=== PATIENT | female | born 1935 | race Caucasian/White ===

== ENCOUNTER 2017-04-30 21:34 | Emergency (ER) | payer MEDICAID, MEDICARE ==
[~2017-04-30] VITALS: Ht 162.6 cm; Wt 81.6 kg
[~2017-04-30 21:34] MED LIST: AMIT100T2 PO; CALC-1119 PO; CARB200T8 PO; CLON1TAB4 PO; CLOP75TA15 PO; FAMO1TAB36 PO; PENT400T2 PO; PHEN-704 PO; PREG75CA PO; ROPI2TAB5 PO; SULF1TAB48 PO; VITA1TAB34 PO
[2017-04-30] MEDS: LIDOCAINE HCL 1% 20 ML VIAL IJ ONE (21:54)
--- NOTE | 2017-04-30 22:00 | NUR ---
Pt biba for large laceration to RLE. Pt seen by MD. Wound irrigated, awaiting laceration repair. Pt resting in position of comfort for self. Resp even and unlabored. No obvious signs of distress at this time. Family at bedside.
--- NOTE | 2017-04-30 23:20 | NUR ---
Pt resting in position of comfort for self. Awaiting laceration repair.
--- NOTE | 2017-05-01 00:30 | NUR ---
Dr. Sr to bedside for laceration repair
[2017-05-01] MEDS: AMOXICILLIN-CLAVUL 875-125MG TABLET PO ONE (01:31)
[2017-05-01 01:37] VITALS: BP 137/80
--- NOTE | 2017-05-01 01:39 | NUR ---
Patient discharged to home in stable conditon. Written and verbal after care instructions given. Patient verbalizes understanding of instructions. Ambulated from ER with stable gait using front wheel walker. Accompanied by private caregiver. All belongings with patient. Patient educated to return for wound check in 2 days and to take antibiotic as ordered for full course. Patient will be driven home by caregiver in private vehicle.
[2017-05-01] MEDS ORDERED: AMOXICILLIN-CLAVUL 875-125MG TABLET ONE (01:41)
[2017-05-01] MEDS ORDERED: CARBIDOPA/LEVODOPA 25-100MG TABLET PO STA (04:39)
== END 2017-05-01 01:38 | disposition home or self-care (01) ==
LOC: ER 21:37
DX: S81.811A Laceration without foreign body, right lower leg, initial encounter (principal); I10 Essential (primary) hypertension; F32.9 Major depressive disorder, single episode, unspecified; D64.9 Anemia, unspecified; Z87.01 Personal history of pneumonia (recurrent); W18.30XA Fall on same level, unspecified, initial encounter; Y93.89 Activity, other specified; Y99.8 Other external cause status; Y92.89 Other specified places as the place of occurrence of the external cause
CPT/HCPCS: A4217; A4663; J3490

== ENCOUNTER 2017-05-05 17:41 | Inpatient (IN) | payer MEDICAID, MEDICARE ==
[~2017-05-05] VITALS: Ht 149.9 cm; Wt 65.8 kg
--- NOTE | 2017-05-05 18:38 | NUR ---
DR ZHAO AT THE BEDSIDE FOR EVAL AND EXAM.
[2017-05-05] MEDS ORDERED: VANCOMYCIN IV 1,000 MG in IV DEXTROSE 5% 250 ML IV ONE (19:00)
[2017-05-05] MEDS ORDERED: VANCOMYCIN IV 200 ML ONE (19:19)
[2017-05-05 19:29] LABS: BASOPHILS % (AUTO) 0.7 % (0.0-2.0); EOSINOPHILS # (AUTO) 0.1 K/uL (0.0-0.7); EOSINOPHILS % (AUTO) 1.7 % (0.0-7.0); HEMATOCRIT 28.9 % (37-47); HEMOGLOBIN 9.6 G/DL (12.0-16.0); LYMPHOCYTES # (AUTO) 1.1 K/UL (0.8-4.8); MEAN CORPUSCULAR HEMOGLOBIN 29.6 UUG (27.0-31.0); MEAN CORPUSCULAR HGB CONC 33 g/dL (32.0-37.0); MEAN CORPUSCULAR VOLUME 89.1 FL (81.0-99.0); MONOCYTES # (AUTO) 0.6 K/UL (0.1-1.30); MONOCYTES % (AUTO) 9.4 % (0.0-11.0); NEUTROPHILS # (AUTO) 4.4 K/UL (1.8-8.9); NEUTROPHILS % (AUTO) 70.2 % (38.5-71.5); PLATELET COUNT (AUTO) 279 K/UL (150-450); RED BLOOD CELL COUNT(AUTO) 3.25 MIL/UL (4.2-5.4); WHITE BLOOD COUNT (AUTO) 6.2 K/UL (4.0-11.2)
[2017-05-05 19:37] LABS: ALANINE AMINOTRANSFERASE 21 U/L (14-59); ALKALINE PHOSPHATASE 131 U/L (50-136); ASPARTATE AMINOTRANSFERASE 25 U/L (15-37); BILIRUBIN,DIRECT 0.1 mg/dL (0.0-0.2); BILIRUBIN,TOTAL 0.2 mg/dL (0.2-1.0); CARBON DIOXIDE 25 mmol/L (21-32); CHLORIDE 94 mmol/L (98-107); CREATININE 0.7 mg/dL (0.6-1.3); GLUCOSE 115 mg/dL (74-106); POTASSIUM 4.4 mmol/L (3.5-5.1); TOTAL PROTEIN, SERUM 7.3 g/dL (6.4-8.2); UREA NITROGEN, BLOOD 15 mg/dL (7-18)
--- NOTE | 2017-05-05 19:55 | NUR ---
Radiology at bedside for US.
[2017-05-05 20:00] VITALS: BP 111/65
--- NOTE | 2017-05-05 20:04 | NUR ---
Radiology completed US, preliminary results to ERMD.
--- NOTE | 2017-05-05 20:17 | NUR ---
Received report from KYUNG [facility].
--- NOTE | 2017-05-05 20:31 | NUR ---
Pt. admitted to M/S, under care of Dr. Mathis Belongs List completed
--- NOTE | 2017-05-05 20:50 | NUR ---
Received pt from ER via mallika sullivan/ KYUNG. Pt completed Vancomycin from ER however pt's left antecubital peripheral line is infiltarted. Photo taken picture and applied warm compress.
--- NOTE | 2017-05-05 21:15 | NUR ---
VS taken and stable. Assessment done:Pt is AOX3 ambulates with personal walker. ambulates to bathroom with standby assist. Lung sound clear,heart sounds S1 S2, abdominal sounds hypoactive, had BM today,pulses palpable,temperature WNL. Skin is intact except for rt leg which had laceration repair from ER, suture intact,skin is purplish black in description, reddened and swollen, warm to touch.Observed some bruises bilateral hands and infiltrated left antecubital,photo taken and secured in the chart. Pt denies any pain at the lacerated area (rt leg.),complains more at left knee, scars notice bilateral knee. Pt also c/o left shoulder intermittently, mentioned that she goes to MD for steroids shots.
[2017-05-05] MEDS ORDERED: ONDANSETRON 4 MG/2 ML VIAL IV PRN (22:00)
[2017-05-05] MEDS ORDERED: MAGNESIUM HYDROXIDE 30 ML LIQUID UDC PO PRN (22:00)
[2017-05-05] MEDS ORDERED: MORPHINE SULFATE 2 MG/1 ML DISP.SYRIN IV PRN (22:00)
[2017-05-05] MEDS ORDERED: MORPHINE SULFATE 2 MG/1 ML DISP.SYRIN ONE (22:56)
[2017-05-05] MEDS ORDERED: CARBAMAZEPINE 200 MG TABLET ONE (23:24)
[2017-05-05] MEDS ORDERED: PIPERACILLIN/TAZOBACTAM/D5W 50 ML IV ONE (23:24)
[2017-05-05] MEDS: CARBAMAZEPINE 200 MG TABLET PO SCH (23:29)
[2017-05-05] MEDS: PIPERACILLIN/TAZOBACTAM/D5W 3.375 G in PREMIXED 1 EACH IV SCH (23:29)
--- NOTE | 2017-05-06 | NUR ---
Cleansed the rt leg laceration wound w/ NS, patted dry, covered w/ adaptic dressing and secured w/ Kirlex dressing, elevated bilaterallegs w/ pillows. Heels and other pressure areas are free from ulcers. Continue monitor.
[2017-05-06] MEDS ORDERED: PIPERACILLIN/TAZOBACTAM/D5W 50 ML IV ONE (00:05)
--- NOTE | 2017-05-06 01:00 | NUR ---
Pt requested fro medicine for knee jerks,she said she take Klonopin, made aware and given pt 2mg Klonopin.Pt was comfortable sleeping after.
[2017-05-06] MEDS ORDERED: CLONAZEPAM 1 MG TABLET ONE (01:02)
[2017-05-06] MEDS: CLONAZEPAM 1 MG TABLET PO SCH ×2 (01:33→21:18)
--- NOTE | 2017-05-06 04:00 | NUR ---
Pt asleep, VS stable and continue monitor. Breathing evenly and normally.
[2017-05-06 05:52] VITALS: BP 115/62
--- NOTE | 2017-05-06 06:52 | NUR ---
Pt remained asleep. Shift Change.Report to Day shift RN
[2017-05-06] MEDS: PIPERACILLIN/TAZOBACTAM/D5W 3.375 G in PREMIXED 1 EACH IV SCH ×3 (07:00→21:18)
[2017-05-06] MEDS: PANTOPRAZOLE SODIUM 40 MG TABLET.DR PO SCH (07:00)
[2017-05-06] MEDS ORDERED: PANTOPRAZOLE SODIUM 40 MG TABLET.DR PO ONE (07:10)
[2017-05-06] MEDS ORDERED: Medication Not On Formulary EA (Pregabalin (Lyrica) 75 MG) PO SCH (09:00)
[2017-05-06] MEDS: ropiniROLE 1 MG TABLET PO SCH ×3 (09:29→17:11)
[2017-05-06] MEDS: CLOPIDOGREL 75 MG TABLET PO SCH (09:31)
[2017-05-06] MEDS: PREGABALIN 25 MG CAPSULE PO SCH ×2 (09:31→17:11)
[2017-05-06] MEDS: PENTOXIFYLLINE 400 MG TABLET.SA PO SCH ×2 (09:35→17:11)
[2017-05-06] MEDS: CARBAMAZEPINE 200 MG TABLET PO SCH ×2 (09:38→17:11)
[2017-05-06 10:15] LABS: BASOPHILS % (AUTO) 1.1 % (0.0-2.0); EOSINOPHILS # (AUTO) 0.1 K/uL (0.0-0.7); EOSINOPHILS % (AUTO) 1.7 % (0.0-7.0); HEMATOCRIT 32.2 % (37-47); HEMOGLOBIN 10.9 G/DL (12.0-16.0); LYMPHOCYTES % (AUTO) 21.7 % (20.5-51.5); MEAN CORPUSCULAR HEMOGLOBIN 30.1 UUG (27.0-31.0); MEAN CORPUSCULAR HGB CONC 34 g/dL (32.0-37.0); MEAN CORPUSCULAR VOLUME 89.2 FL (81.0-99.0); MONOCYTES # (AUTO) 0.6 K/UL (0.1-1.30); MONOCYTES % (AUTO) 13.3 % (0.0-11.0); NEUTROPHILS # (AUTO) 2.7 K/UL (1.8-8.9); NEUTROPHILS % (AUTO) 62.2 % (38.5-71.5); PLATELET COUNT (AUTO) 265 K/UL (150-450); RED BLOOD CELL COUNT(AUTO) 3.61 MIL/UL (4.2-5.4); WHITE BLOOD COUNT (AUTO) 4.4 K/UL (4.0-11.2)
[2017-05-06 10:41] LABS: IRON, SERUM 76 ug/dL (50-175)
[2017-05-06 10:45] LABS: THYROID STIMULATING HORMONE 1.938 mIU/mL (0.358-3.740)
[2017-05-06 11:25] VITALS: BP 130/57
[2017-05-06 11:40] LABS: ALANINE AMINOTRANSFERASE 27 U/L (14-59); ALKALINE PHOSPHATASE 142 U/L (50-136); ASPARTATE AMINOTRANSFERASE 26 U/L (15-37); BILIRUBIN,TOTAL 0.2 mg/dL (0.2-1.0); CARBON DIOXIDE 25 mmol/L (21-32); CHLORIDE 94 mmol/L (98-107); CHOLESTEROL 179 mg/dL (<200); CREATININE 0.9 mg/dL (0.6-1.3); GLUCOSE 121 mg/dL (74-106); HDL CHOLESTEROL 97 mg/dL (40-60); MAGNESIUM 2.2 mg/dL (1.8-2.4); PHOSPHOROUS 2.6 mg/dL (2.5-4.9); POTASSIUM 4.5 mmol/L (3.5-5.1); TOTAL PROTEIN, SERUM 7.4 g/dL (6.4-8.2); TRIGLYCERIDES 51 MG/DL (30-150); UREA NITROGEN, BLOOD 11 mg/dL (7-18)
[2017-05-06] MEDS: MORPHINE SULFATE 4 MG/1 ML DISP.SYRIN IV PRN (13:46)
--- NOTE | 2017-05-06 14:09 | NUR ---
Clinical Pharmacy Note: Vancomycin Dosing per Pharmacy Subjective: Vancomycin IV to start on this 81 y/o female for indication of cellulitis Objective: BUN 15 WBC 0.7 Temperature 98.2 Assessment/Plan: As renal function may be stable, will start regimen of 1gm q21hrs for expected trough of 15.8. First dose was given 05/05 @1910. Will change and dose per level if renal function were to decompensate. Will order trough before 4th scheduled dose (not ordered yet). Will follow daily
[2017-05-06 15:38] VITALS: BP 123/57
[2017-05-06] MEDS: VANCOMYCIN IV 1 G in PREMIXED 0 EACH IV SCH (16:15)
--- NOTE | 2017-05-06 18:32 | NUR ---
PT HAS BEEN UPIN CHAIR MOST OF SHIFT C/O LEFT SHOULDER PAIN MEDICATED TIMES ONE WITH MORPHINE 2MG IVP WITH LITTLE EFFECT PER PATIENT., ASSISTED TO BATHROOM WITH MIN ASSIST , RIGHT LEG DSG C/D/I CONTINUE TO MONITOR FOR SAFETY
--- NOTE | 2017-05-06 19:30 | NUR ---
SITTING ON CHAIR, ALERT, ABLE TO MAKE NEEDS KNOWN. FAMILY MEMBER AT BEDSIDE. NO ACUTE DISTRES NOTED. NEEDS ATTENDED. CALL LIGHT WITHIN REACH. WILL CONTINUE TO MONITOR
[2017-05-06 20:00] VITALS: BP 137/76
--- NOTE | 2017-05-06 20:50 | NUR ---
ASSISTED WITH ADLs, AND RESTROOM USE. ASSISTED BACK TO BED, NEEDS ATTENDED. CALL LIGHT WITHIN REACH. WILL CONTINUE TO MONITOR
[2017-05-06] MEDS ORDERED: CLONAZEPAM 1 MG TABLET PO SCH (21:00)
[2017-05-06] MEDS ORDERED: DOCUSATE SODIUM 250 MG CAPSULE PO SCH (21:00)
[2017-05-06] MEDS: DOCUSATE SODIUM 100 MG CAPSULE PO SCH (21:18)
[2017-05-06] MEDS ORDERED: DOCUSATE SODIUM 100 MG CAPSULE PO ONE (21:28)
[2017-05-07] VITALS (7 sets, daily range): BP systolic 118–142; BP diastolic 54–78
--- NOTE | 2017-05-07 01:50 | NUR ---
PATIENT IN BED SLEEPING AT THIS TIME. SAFETY MAINTAINED. WILL CONTINUE TO MONITOR
--- NOTE | 2017-05-07 03:00 | NUR ---
FOUND PATIENT ON FLOOR, ALERT AND ORIENTED. NOTED PATIENT HOLDING LEFT SIDE OF HEAD WITH COMPLAINTS OF HEAD PAIN, BLEEDING NOTED. NEURO CHECKS WITHIN NORMAL LIMITS. V/S TAKEN AND STABLE. RN HEALTH ECONOMIST, VAT OVERHAULER NURSE, SALES REVIEW CLERK, FINANCE ASSOCIATE AT BEDSIDE. PATIENT ABLE TO MOVE ALL EXTREMITIES WITHOUT ANY DIFFICULTY. PATIENT ASSISTED BACK TO BED. WOUND CARE PROVIDED TO AFFECTED AREA. MD MADE AWARE WITH STAT ORDERS.
[2017-05-07] MEDS: ACETAMINOPHEN 325 MG TABLET PO PRN ×3 (03:45→20:58)
[2017-05-07] MEDS: PIPERACILLIN/TAZOBACTAM/D5W 3.375 G in PREMIXED 1 EACH IV SCH ×3 (05:53→22:09)
[2017-05-07] MEDS: PANTOPRAZOLE SODIUM 40 MG TABLET.DR PO SCH (06:10)
--- NOTE | 2017-05-07 06:23 | NUR ---
SLEPT INTERMITTENTLY DURING THE SHIFT. ALERT AND ORIENTED. NO ACUTE DISTRESS NOTED. NO BLEEDING NOTED ON LEFT TEMPORAL AREA AND LEFT EAR. ICE PACK APPLIED. FREQUENT NEURO CHECKS DONE. SAFETY MAINTAINED, WILL BED ALARM ON. NEEDS ATTENDED. CALL LIGHT WITHIN REACH
[2017-05-07] MEDS: PENTOXIFYLLINE 400 MG TABLET.SA PO SCH ×2 (09:55→16:53)
[2017-05-07] MEDS: ropiniROLE 1 MG TABLET PO SCH ×3 (09:55→16:53)
[2017-05-07] MEDS: CARBAMAZEPINE 200 MG TABLET PO SCH ×2 (09:55→16:53)
[2017-05-07] MEDS: PREGABALIN 25 MG CAPSULE PO SCH ×2 (09:55→16:53)
[2017-05-07] MEDS: CLOPIDOGREL 75 MG TABLET PO SCH (09:55)
[2017-05-07 10:11] LABS: BASOPHILS % (AUTO) 0.7 % (0.0-2.0); EOSINOPHILS # (AUTO) 0.1 K/uL (0.0-0.7); EOSINOPHILS % (AUTO) 1.9 % (0.0-7.0); HEMATOCRIT 27.2 % (37-47); LYMPHOCYTES % (AUTO) 26.8 % (20.5-51.5); MEAN CORPUSCULAR HEMOGLOBIN 29.5 UUG (27.0-31.0); MEAN CORPUSCULAR HGB CONC 33 g/dL (32.0-37.0); MEAN CORPUSCULAR VOLUME 89.2 FL (81.0-99.0); MONOCYTES # (AUTO) 0.4 K/UL (0.1-1.30); NEUTROPHILS # (AUTO) 2.3 K/UL (1.8-8.9); NEUTROPHILS % (AUTO) 59.6 % (38.5-71.5); PLATELET COUNT (AUTO) 254 K/UL (150-450); RED BLOOD CELL COUNT(AUTO) 3.04 MIL/UL (4.2-5.4); WHITE BLOOD COUNT (AUTO) 3.8 K/UL (4.0-11.2)
[2017-05-07 10:26] LABS: ALANINE AMINOTRANSFERASE 18 U/L (14-59); ALKALINE PHOSPHATASE 111 U/L (50-136); ASPARTATE AMINOTRANSFERASE 20 U/L (15-37); BILIRUBIN,TOTAL 0.2 mg/dL (0.2-1.0); CARBON DIOXIDE 28 mmol/L (21-32); CHLORIDE 96 mmol/L (98-107); CREATININE 0.9 mg/dL (0.6-1.3); GLUCOSE 156 mg/dL (74-106); MAGNESIUM 2.1 mg/dL (1.8-2.4); PHOSPHOROUS 2.9 mg/dL (2.5-4.9); POTASSIUM 3.6 mmol/L (3.5-5.1); TOTAL PROTEIN, SERUM 6.4 g/dL (6.4-8.2); UREA NITROGEN, BLOOD 15 mg/dL (7-18)
[2017-05-07] MEDS: VANCOMYCIN IV 1 G in PREMIXED 0 EACH IV SCH (12:44)
[2017-05-07] MEDS ORDERED: MAGNESIUM HYDROXIDE 30 ML LIQUID UDC PO ONE (14:15)
--- NOTE | 2017-05-07 14:30 | NUR ---
FOUND THE PT CRYING AND BEING UPSET IN THE ROOM. PER PT "PEOPLE WERE PUSHING AND PUSHING".
--- NOTE | 2017-05-07 14:35 | NUR ---
PT'S IV STOPPED WORKING. ADVISED THE PT THAT I WILL REMOVE THE OLD IV, AND PUT A NEW ONE. PT IS UPSET AND DOES NOT WANT NEW IV. EXPLAINED TO THE PT THAT PT NEEDS TO RECEIVE ANTIBIOTICS. PT SAID THAT SHE WANTS TO GO HOME AND DOES NOT WANT ANY NEW IV. Addendum: 05/07/17 at 1446 by MAGAN HINDS RN PHONE NUMBERS FOR [employer] IN [employer] AND [employer] ARE WRONG. PT STILL REFUSES IV.
--- NOTE | 2017-05-07 14:48 | NUR ---
PT STATES "SOMEBODY BOTHER ME, I WANT TO GO HOME". ASKED THE PT IF CAN START IV. PT REFUSED AND UPSET. Addendum: 05/07/17 at 1449 by MAGAN HINDS RN TRIED TO CALL PHONE NUMBERS ON [employer] AND [employer]. BOTH ARE NOT WORKING. WILL ADVISE VISH ESCOBAR ABOUT THE PT WANTING TO LEAVE.
--- NOTE | 2017-05-07 14:59 | NUR ---
ADVISED BEULAH WAHL THAT PT REFUSING HER MEDS AND DOES NOT WANT TO HEAR ABOUT CATHETERIZATION TO GET URINE. PT REFUSING ALL TREATMENTS AND WANT TO BE "LEFT ALONE". BEULAH WAHL IS ADVISED. WILL TRY AGAIN TO PROVIDE THE PT WITH NEEDED INFORMATION AND START THE IV. CHARGE NURSE IS ADVISED THAT PT REFUSES ALL MEDS AND TREATMENT.
--- NOTE | 2017-05-07 15:29 | NUR ---
Clinical Pharmacy Note: Vancomycin Dosing per Pharmacy Subjective: Vancomycin IV to continue on this 81 y/o female for indication of cellulitis Objective: BUN 15 Scr 0.9 WBC 3.8 Temperature 98.2 Assessment/Plan: Will continue 1gm q21hrs for expected trough of 15.8. Third dose was given today @1244. Will order trough before 4th scheduled dose (ordered tomorrow at 0930). Will follow daily
--- NOTE | 2017-05-07 16:41 | NUR ---
PT REFUSED THE WOUND CARE NURSE ASSESS THE PT. PT STILL REFUSING IV, PT UPSET ABOUT THE BRUISING ON HER ARMS.
--- NOTE | 2017-05-07 16:41 | NUR ---
WOUND CARE CONSULT: PT ADAMANTLY REFUSED SKIN ASSESSMENT. PT HOLDING HER LEFT EAR WITH GAUZE BUT REFUSED ASSESSMENT. REVIEWED PHOTO DOCUMENTATION AND SPOKE WITH RN, CERT OCCUPATIONAL THERAPY ASST AND A BEULAH CARBONE. RECOMMEND SURGICAL CONSULT. RECOMMENDATIONS MADE FOR SKIN PROTECTION. DISCUSSED WITH NURSING STAFF. MD IN AGREEMENT WITH PLAN OF CARE.
[2017-05-07] MEDS ORDERED: Z GUARD REMEDY PASTE 57 GM TUBE TOP PRN (16:45)
--- NOTE | 2017-05-07 16:50 | NUR ---
WOUND CARE NURSE ADVISED THAT THE PT IS CONFUSED AND DOESN'T KNOW WHERE SHE ID. WENT TO ASSESS THE PT, THE PT IS [id number]. pT KNOWS WHERE EXACTLY SHE IS, THE NURSE NAME, THE CORRECT TIME AND CAN STATE HER FULL NAME ALONG WITH BIRTHDAY. THE PUPILS ARE REACTIVE AND NO DEFICITS IN EITHER EXTREMITIES ARE NOTED.
--- NOTE | 2017-05-07 16:54 | NUR ---
PT REFUSED WOUND CARE, PT STATES "NOTHING, NOTHING, I WANT TO GO HOME". BEULAH CARBONE IS ADVISED.
--- NOTE | 2017-05-07 18:47 | NUR ---
PT IS LAYING IN BED COMFORTABLY. NO S/S OF RESPIRATORY DISTRESS NOTED. NO PAIN NOTED. ALL SAFETY NEEDS ARE MET. IV WAS NOT PUT, SINCE THE PT ABSOLUTELY REFUSED TO RECEIVE TREATMENTS/ MEDICATIONS/BE CATHETERIZED TO SEND URINE. PT IS CALM, ALERT AND ORIENTEDX3. BOTH ARMS ARE ABLE TO MOVE, REFUSED TO MOVE LEGS, NOTED TO AMBULATE WITH USING WALKER. NO S/S OF BLEEDING NOTED.
--- NOTE | 2017-05-07 19:30 | NUR ---
PER REPORT GIVEN, PATIENT HAD BEEN REFUSING CARE, REFUSING MEDICATION, REFUSING IV INSERTION AND EVEN REFUSING WOUND NURSE TO ASSESS. PATIENT IN BED, WITH FAMILY MEMBER AT BEDSIDE. 1:1 SITTER AT BEDSIDE FOR SAFETY. TRYING TO CONVINCE HER TO REINSERT IV AND DO WOUND TX. CALL LIGHT WITHIN REACH. WILL CONTINUE TO MONITOR
--- NOTE | 2017-05-07 20:15 | NUR ---
ABLE TO SPEAK WITH SON MATIAS SAVAGE, ABLE TO GET PHONE NUMBER, PLACED ON [employer]. SON WAS ABLE TO CONVINCE PATIENT TO REINSERT IV, DO WOUND TX.
[2017-05-07] MEDS: CLONAZEPAM 1 MG TABLET PO SCH (20:57)
[2017-05-07] MEDS: DOCUSATE SODIUM 100 MG CAPSULE PO SCH (20:57)
[2017-05-07] MEDS: Z GUARD REMEDY PASTE 57 GM TUBE TOP SCH (20:58)
[2017-05-07] MEDS ORDERED: ropiniROLE 1 MG TABLET PO SCH (21:45)
[2017-05-07] MEDS: OLANZAPINE ZYDIS 5 MG TAB.RAPDIS PO PRN (22:26)
[2017-05-07] MEDS: MORPHINE SULFATE 4 MG/1 ML DISP.SYRIN IV PRN (23:03)
[2017-05-08] MEDS: MORPHINE SULFATE 4 MG/1 ML DISP.SYRIN IV PRN ×2 (02:29→22:43)
[2017-05-08] MEDS: ACETAMINOPHEN 325 MG TABLET PO PRN ×3 (03:38→21:19)
[2017-05-08 04:00] VITALS: BP 131/61
[2017-05-08] MEDS: PIPERACILLIN/TAZOBACTAM/D5W 3.375 G in PREMIXED 1 EACH IV SCH ×3 (05:38→21:43)
--- NOTE | 2017-05-08 05:49 | NUR ---
SLEPT INTERMITTENTLY DURING THE SHIFT. S/P FALL. FREQUENT NEURO ASSESSMENT DONE. NO BLEEDING NOTED ON LEFT TEMPORAL AREA. COOPERATIVE WITH CARE. ALL DUE MEDS GIVEN ORDERED. DID NOT REFUSE BLOOD DRAW. KEPT CLEAN AND DRY AT ALL TIMES. NEEDS ATTENDED. CONTINUES WITH 1:1 SITTER AT BEDSIDE.
[2017-05-08] MEDS: PANTOPRAZOLE SODIUM 40 MG TABLET.DR PO SCH (06:10)
[2017-05-08 06:59] LABS: BASOPHILS % (AUTO) 0.8 % (0.0-2.0); EOSINOPHILS # (AUTO) 0.1 K/uL (0.0-0.7); EOSINOPHILS % (AUTO) 2.3 % (0.0-7.0); HEMATOCRIT 26.6 % (37-47); HEMOGLOBIN 8.8 G/DL (12.0-16.0); LYMPHOCYTES # (AUTO) 1.4 K/UL (0.8-4.8); LYMPHOCYTES % (AUTO) 42.3 % (20.5-51.5); MEAN CORPUSCULAR HEMOGLOBIN 29.9 UUG (27.0-31.0); MEAN CORPUSCULAR HGB CONC 33 g/dL (32.0-37.0); MEAN CORPUSCULAR VOLUME 90.6 FL (81.0-99.0); MONOCYTES # (AUTO) 0.5 K/UL (0.1-1.30); MONOCYTES % (AUTO) 13.1 % (0.0-11.0); NEUTROPHILS # (AUTO) 1.4 K/UL (1.8-8.9); NEUTROPHILS % (AUTO) 41.5 % (38.5-71.5); PLATELET COUNT (AUTO) 238 K/UL (150-450); RED BLOOD CELL COUNT(AUTO) 2.93 MIL/UL (4.2-5.4); WHITE BLOOD COUNT (AUTO) 3.4 K/UL (4.0-11.2)
[2017-05-08 07:37] LABS: ALANINE AMINOTRANSFERASE 17 U/L (14-59); ALKALINE PHOSPHATASE 107 U/L (50-136); ASPARTATE AMINOTRANSFERASE 21 U/L (15-37); BILIRUBIN,TOTAL 0.2 mg/dL (0.2-1.0); CARBON DIOXIDE 29 mmol/L (21-32); CHLORIDE 100 mmol/L (98-107); CREATININE 0.9 mg/dL (0.6-1.3); GLUCOSE 87 mg/dL (74-106); MAGNESIUM 2.2 mg/dL (1.8-2.4); PHOSPHOROUS 3.6 mg/dL (2.5-4.9); POTASSIUM 3.8 mmol/L (3.5-5.1); TOTAL PROTEIN, SERUM 6.4 g/dL (6.4-8.2); UREA NITROGEN, BLOOD 16 mg/dL (7-18)
[2017-05-08] MEDS: Z GUARD REMEDY PASTE 57 GM TUBE TOP SCH ×2 (09:00→20:53)
[2017-05-08] MEDS: PREGABALIN 25 MG CAPSULE PO SCH ×2 (09:08→17:16)
[2017-05-08] MEDS: CLOPIDOGREL 75 MG TABLET PO SCH (09:08)
[2017-05-08] MEDS: CARBAMAZEPINE 200 MG TABLET PO SCH ×2 (09:09→17:17)
[2017-05-08] MEDS: ropiniROLE 1 MG TABLET PO SCH ×3 (09:09→17:17)
[2017-05-08] MEDS: PENTOXIFYLLINE 400 MG TABLET.SA PO SCH ×2 (09:10→17:17)
[2017-05-08 10:15] LABS: EOSINOPHILS % (MANUAL) 2 % (0-8); LYMPHOCYTES % (MANUAL) 38 % (20-40); MONOCYTES % (MANUAL) 13 % (2-10); NEUTROPHILS % (MANUAL) 47 % (42-75)
[2017-05-08 10:56] LABS: IRON, SERUM 46 ug/dL (50-175)
[2017-05-08] MEDS ORDERED: LORAZEPAM 2 MG/1 ML VIAL IV PRN (11:00)
[2017-05-08] MEDS: FOLIC ACID 1 MG TABLET PO SCH (11:14)
[2017-05-08] MEDS: VANCOMYCIN IV 1 G in PREMIXED 0 EACH IV SCH (11:14)
[2017-05-08] MEDS: THIAMINE HCL 100 MG TABLET PO SCH (11:14)
[2017-05-08] MEDS: MULTIVITAMINS,THERAPEUTIC TABLET PO SCH (11:15)
[2017-05-08 11:32] LABS: *BILIRUBIN,URIN NEGATIVE (NEGATIVE); *BLOOD, URINE NEGATIVE (NEGATIVE); *CLARITY,URINE CLEAR (CLEAR); *COLOR,URINE LIGHT YELLOW (YELLOW); *KETONES,URINE NEGATIVE (NEGATIVE); *PROTEIN,URINE NEGATIVE (NEGATIVE); *UROBILINOGEN,URINE 0.2 E.U./dl (NORMAL); LEUKOCYTE ESTERASE ,URINE NEGATIVE (NEGATIVE); NITRITE, URINE NEGATIVE (NEGATIVE); UGLUCOSE NEGATIVE (NEGATIVE)
[2017-05-08 11:37] LABS: *CREATININE,URINE 14.6 mg/dL (30-125)
[2017-05-08 11:42] LABS: *AMPHETAMINE, URINE NEGATIVE (NEGATIVE); *BARBITURATE, URINE NEGATIVE (NEGATIVE); *CANNABINOID, URINE NEGATIVE (NEGATIVE); *COCCAINE, URINE NEGATIVE (NEGATIVE); *OPIATE, URINE POSITIVE (NEGATIVE); *PHENCYCLIDINE SCREEN,URINE NEGATIVE (NEGATIVE)
[2017-05-08 12:07] LABS: BACTERIA,URINE NONE SEEN /HPF (NONE SEEN); RBC,URINE NONE SEEN /HPF (0-3); SQUAMOUS EPITHELIAL CELL,UR FEW /HPF (NONE SEEN); WBC,URINE NONE SEEN /HPF (0-3)
[2017-05-08 12:29] VITALS: BP 149/67
--- NOTE | 2017-05-08 12:36 | NUR ---
Clinical Pharmacy Note: Vancomycin Dosing per Pharmacy Subjective: Vancomycin IV to continue on this 81 y/o female for indication of cellulitis Objective: BUN 16 Scr 0.9 WBC 3.4 Temperature 97.4 Vancomycin trough level: 13.1 Assessment/Plan: Per MD note, redness has decreased, will continue same dose of vancomycin 1gm IV q21hrs for today. Next dose is due tomorrow at 0700. Will follow daily
[2017-05-08 18:14] LABS: HEMATOCRIT 28.7 % (37-47); HEMOGLOBIN 9.4 G/DL (12.0-16.0)
[2017-05-08 20:00] VITALS: BP 142/62
--- NOTE | 2017-05-08 20:15 | NUR ---
PT'S A/A/O X2 WITH HER CAREGIVER @ THE BEDSIDE;BUT HE'LL GO HOME SOON;1:1 SITTER FOR SAFETY DUE TO FALL RISK.ASSISTED PT FOR PM CARE AT THE BEDSIDE BY CAREGIVER BUT UNDER SUPERVISION FROM RN;PT'S COOPERATIVE W/ASSISTANCE AT THIS TIME;ABLE TO TAKE NIGHT MEDICATION ORDER.KEPT COMFORT.CLOSELY MONITORING TO PT.
[2017-05-08] MEDS: DOCUSATE SODIUM 100 MG CAPSULE PO SCH (20:52)
[2017-05-08] MEDS: CLONAZEPAM 1 MG TABLET PO SCH (20:52)
--- NOTE | 2017-05-08 21:45 | NUR ---
FOUND IV SITE WAS REDNESS AND PT C/O PAIN AT THE SITE;EDUCATED TO PT DUE TO THE NEED OF CHANGING IV SITE;ABLE TO GET AT THE LEFT WRIST G#22;IV ABX WAS GIVEN ORDER;PT'S UPSET AND C/O IV INSERTION FOR MANY DAYS AND MANY TIMES;PSYCHO SUPPORT TO PT FOR 30-45 MINUTES UNTIL PT'S CALM DOWN AND C/O GENERALIZED PAIN;ELEVATED RIGHT LEG CELLULITIS SITE AT THIS TIME;MORPHINE 2 MG IVP X1 AT 22:43;AFTER PT GOT IT FOR 15 MINUTES;PT'S CALM AND STATED THAT SHE FELT BETTER.CLOSELY MONITORING TO PT.SAFETY RENDER.1:1 SITTER AT THE BEDSIDE.BED ALARM'S ON.
[2017-05-09] MEDS: OLANZAPINE ZYDIS 5 MG TAB.RAPDIS PO PRN ×2 (01:48→09:58)
--- NOTE | 2017-05-09 01:48 | NUR ---
PT TRIED TO GET OUT OF BED AND STATED THAT "I WANT TO GO TO MY PHARMACY TO GET MEDICATION,I CAN'T SLEEP";REORIENTATION TO PT BUT SHE'S FORGETTING;ZYPREXA 5 MG PO X1 WAS GIVEN TO PT;SHE TOLERATED WELL AND CALM DOWN,SAFETY REINFORCED.CLOSELY MONITORING TO PT.
[2017-05-09] MEDS: MORPHINE SULFATE 4 MG/1 ML DISP.SYRIN IV PRN ×2 (04:46→22:55)
[2017-05-09 05:00] VITALS: BP 149/88
[2017-05-09] MEDS: PIPERACILLIN/TAZOBACTAM/D5W 3.375 G in PREMIXED 1 EACH IV SCH ×3 (05:26→21:26)
--- NOTE | 2017-05-09 06:10 | NUR ---
ASSISTED PT FOR AM CARE ON BED;PT'S CALM AT THIS TIME;DENIED OF PAIN OR ANY DISCOMFORT,COOPERATIVE W/ASSISTANCE,ABLE TO GIVE ZOSYN ORDER.NO DISTRESS NOTED IN THE SHIFT.PT REMAINED FREE FROM INJURY NOTED.SAFETY REINFORCED,1:1 SITTER @ THE BEDSIDE.
[2017-05-09] MEDS: PANTOPRAZOLE SODIUM 40 MG TABLET.DR PO SCH (06:19)
[2017-05-09] MEDS: VANCOMYCIN IV 1 G in PREMIXED 0 EACH IV SCH (06:57)
[2017-05-09 07:04] LABS: BASOPHILS % (AUTO) 0.9 % (0.0-2.0); EOSINOPHILS # (AUTO) 0.1 K/uL (0.0-0.7); EOSINOPHILS % (AUTO) 3.6 % (0.0-7.0); HEMATOCRIT 26.8 % (37-47); HEMOGLOBIN 8.8 G/DL (12.0-16.0); LYMPHOCYTES # (AUTO) 1.8 K/UL (0.8-4.8); LYMPHOCYTES % (AUTO) 43.2 % (20.5-51.5); MEAN CORPUSCULAR HEMOGLOBIN 29.4 UUG (27.0-31.0); MEAN CORPUSCULAR HGB CONC 33 g/dL (32.0-37.0); MEAN CORPUSCULAR VOLUME 89.7 FL (81.0-99.0); MONOCYTES # (AUTO) 0.4 K/UL (0.1-1.30); NEUTROPHILS # (AUTO) 1.5 K/UL (1.8-8.9); NEUTROPHILS % (AUTO) 40.3 % (38.5-71.5); PLATELET COUNT (AUTO) 255 K/UL (150-450); RED BLOOD CELL COUNT(AUTO) 2.98 MIL/UL (4.2-5.4); WHITE BLOOD COUNT (AUTO) 3.8 K/UL (4.0-11.2)
[2017-05-09 07:30] LABS: ALANINE AMINOTRANSFERASE 19 U/L (14-59); ALKALINE PHOSPHATASE 95 U/L (50-136); ASPARTATE AMINOTRANSFERASE 20 U/L (15-37); BILIRUBIN,TOTAL 0.2 mg/dL (0.2-1.0); CARBON DIOXIDE 27 mmol/L (21-32); CHLORIDE 104 mmol/L (98-107); CREATININE 0.7 mg/dL (0.6-1.3); GLUCOSE 88 mg/dL (74-106); MAGNESIUM 2.3 mg/dL (1.8-2.4); PHOSPHOROUS 3.5 mg/dL (2.5-4.9); POTASSIUM 3.9 mmol/L (3.5-5.1); TOTAL PROTEIN, SERUM 6.4 g/dL (6.4-8.2); UREA NITROGEN, BLOOD 18 mg/dL (7-18)
--- NOTE | 2017-05-09 08:00 | NUR ---
AWAKE COOPERATE AT THIS TIME BUT STILL CONFUSED ON FALL PRECAUTION BED ALARM ON AND SITTER 1:1 AT BEDSIDE NO PAIN OR SOB
[2017-05-09] MEDS: ACETAMINOPHEN 325 MG TABLET PO PRN (08:08)
[2017-05-09] MEDS: PREGABALIN 25 MG CAPSULE PO SCH ×2 (08:08→17:02)
[2017-05-09] MEDS: FOLIC ACID 1 MG TABLET PO SCH (08:08)
[2017-05-09] MEDS: MULTIVITAMINS,THERAPEUTIC TABLET PO SCH (08:08)
[2017-05-09] MEDS: ropiniROLE 1 MG TABLET PO SCH ×3 (08:09→17:02)
[2017-05-09] MEDS: CARBAMAZEPINE 200 MG TABLET PO SCH ×2 (08:09→17:02)
[2017-05-09] MEDS: Z GUARD REMEDY PASTE 57 GM TUBE TOP SCH ×2 (08:09→21:24)
[2017-05-09] MEDS: THIAMINE HCL 100 MG TABLET PO SCH (08:09)
[2017-05-09] MEDS: PENTOXIFYLLINE 400 MG TABLET.SA PO SCH ×2 (08:53→17:02)
--- NOTE | 2017-05-09 10:00 | NUR ---
REFUSED TO HAVE PT ASSIST OOB AND AMBULATE THIS AM
--- NOTE | 2017-05-09 12:00 | NUR ---
ASSIST OOB UP AMB BY PT THIS AFTERNOON DOING WELL EAT LUNCH MOD AMT NO PAIN OR SOB DSG AT RT LE CHANGE AND WOUND C&S SENT TO LAB TODAY
[2017-05-09 12:23] VITALS: BP 119/60
--- NOTE | 2017-05-09 15:24 | NUR ---
Clinical Pharmacy Note: Vancomycin Dosing per Pharmacy Subjective: Vancomycin IV to continue on this 81 y/o female for indication of cellulitis Objective: BUN 18 Scr 0.7 WBC 3.8 Temperature 97.8 Assessment/Plan: Since renal function is stable, will continue same dose of vancomycin 1gm IV q21hrs for today. 4th dose was given today at 0700. Will follow daily.
[2017-05-09 16:00] VITALS: BP 125/61
--- NOTE | 2017-05-09 17:30 | NUR ---
MOST OF THE TIME RESTING QUIET NO ACUTE DISTRESS ,PAIN UNDER CONTROL SAFETY MEASURE PROVIDED CALL CID IN REACH AND SITTER 1;1 AT BEDSIDE
--- NOTE | 2017-05-09 19:00 | NUR ---
PATIENT ALERT ORIENTED, NO SOB NO CHEST PAIN, ON ATB FOR CELLULITIS.WITH NO ADVERSE REACTION NOTED, FAMILY AT BEDSIDE, CONT TO MONITOR. CONT ON PAIN MANAGEMENT
[2017-05-09 19:20] VITALS: BP 137/57
[2017-05-09] MEDS: DOCUSATE SODIUM 100 MG CAPSULE PO SCH (21:21)
[2017-05-09] MEDS: CLONAZEPAM 1 MG TABLET PO SCH (21:21)
[2017-05-10] MEDS: VANCOMYCIN IV 1 G in PREMIXED 0 EACH IV SCH (03:12)
[2017-05-10] MEDS: PIPERACILLIN/TAZOBACTAM/D5W 3.375 G in PREMIXED 1 EACH IV SCH ×3 (05:42→22:42)
[2017-05-10] MEDS: PANTOPRAZOLE SODIUM 40 MG TABLET.DR PO SCH (05:57)
[2017-05-10 06:25] VITALS: BP 109/46
--- NOTE | 2017-05-10 06:44 | NUR ---
PATIENT SLEPT ALL NIGHT, NO SOB NO CHEST PAIN NOTED, CONT ATB FOR CELLULITIS OF THE R LEG, NO ADVERSE REACTION NOTED. CONT ON 1;1 SITTER FOR SAFETY,ASSISTED WITH TOILETING CONT TO MONITOR.
[2017-05-10 07:09] LABS: CARBON DIOXIDE 29 mmol/L (21-32); CHLORIDE 102 mmol/L (98-107); CREATININE 0.7 mg/dL (0.6-1.3); GLUCOSE 93 mg/dL (74-106); MAGNESIUM 2.3 mg/dL (1.8-2.4); PHOSPHOROUS 3.8 mg/dL (2.5-4.9); UREA NITROGEN, BLOOD 16 mg/dL (7-18)
[2017-05-10 07:12] LABS: BASOPHILS % (AUTO) 0.8 % (0.0-2.0); EOSINOPHILS # (AUTO) 0.2 K/uL (0.0-0.7); EOSINOPHILS % (AUTO) 3.8 % (0.0-7.0); HEMATOCRIT 28.4 % (37-47); HEMOGLOBIN 9.3 G/DL (12.0-16.0); LYMPHOCYTES # (AUTO) 1.5 K/UL (0.8-4.8); LYMPHOCYTES % (AUTO) 33.6 % (20.5-51.5); MEAN CORPUSCULAR HEMOGLOBIN 29.6 UUG (27.0-31.0); MEAN CORPUSCULAR HGB CONC 33 g/dL (32.0-37.0); MONOCYTES # (AUTO) 0.5 K/UL (0.1-1.30); MONOCYTES % (AUTO) 10.3 % (0.0-11.0); NEUTROPHILS # (AUTO) 2.4 K/UL (1.8-8.9); NEUTROPHILS % (AUTO) 51.5 % (38.5-71.5); PLATELET COUNT (AUTO) 254 K/UL (150-450); RED BLOOD CELL COUNT(AUTO) 3.16 MIL/UL (4.2-5.4); WHITE BLOOD COUNT (AUTO) 4.6 K/UL (4.0-11.2)
[2017-05-10 08:00] VITALS: BP 125/54
[2017-05-10] MEDS: THIAMINE HCL 100 MG TABLET PO SCH (08:54)
[2017-05-10] MEDS: ropiniROLE 1 MG TABLET PO SCH ×2 (08:54→22:42)
[2017-05-10] MEDS: Z GUARD REMEDY PASTE 57 GM TUBE TOP SCH ×2 (08:54→21:04)
[2017-05-10] MEDS: PREGABALIN 25 MG CAPSULE PO SCH ×2 (08:54→16:35)
[2017-05-10] MEDS: PENTOXIFYLLINE 400 MG TABLET.SA PO SCH ×2 (08:55→16:34)
[2017-05-10] MEDS: FOLIC ACID 1 MG TABLET PO SCH (08:55)
[2017-05-10] MEDS: CARBAMAZEPINE 200 MG TABLET PO SCH ×2 (08:55→16:35)
[2017-05-10] MEDS: MULTIVITAMINS,THERAPEUTIC TABLET PO SCH (08:55)
--- NOTE | 2017-05-10 09:23 | NUR ---
CAREGIVER AT BEDSIDE, SUPPORTIVE OF PATIENT CARE
[2017-05-10 11:53] VITALS: BP 125/56
--- NOTE | 2017-05-10 14:59 | NUR ---
Clinical Pharmacy Note: Vancomycin Dosing per Pharmacy Subjective: Vancomycin IV to continue on this 81 y/o female for indication of cellulitis Objective: BUN 16 Scr 0.7 WBC 4.6 Temperature 97.8 Assessment/Plan: Since renal function is stable, will continue same dose of vancomycin 1gm IV q21hrs for today. Last dose was given today at 0312. Will follow daily.
[2017-05-10 16:13] VITALS: BP 129/51
--- NOTE | 2017-05-10 19:00 | NUR ---
PATIENT AWAKE, VERBALLY RESPONSIVE PATIENT COMPLAIN OF MILD PAIN ON LEFT EAR, AND LEFT SHOULDER PAIN, REFUSED PAIN MEDS AT THIS TIME, STATED SHE WANTED PAIN MEDS LATER ON BEFORE SHE GOES TO SLEEP. CONT TO MONITOR.
[2017-05-10 20:09] VITALS: BP 148/57
[2017-05-10] MEDS: DOCUSATE SODIUM 100 MG CAPSULE PO SCH (21:00)
[2017-05-10] MEDS: LACTOBACILLUS RHAMNOSUS GG 1 EACH CAPSULE PO SCH (21:00)
[2017-05-10] MEDS: CLONAZEPAM 1 MG TABLET PO SCH (21:00)
[2017-05-10] MEDS: MORPHINE SULFATE 4 MG/1 ML DISP.SYRIN IV PRN (22:38)
[2017-05-11] MEDS: OLANZAPINE ZYDIS 5 MG TAB.RAPDIS PO PRN (00:23)
[2017-05-11] MEDS: VANCOMYCIN IV 1 G in PREMIXED 0 EACH IV SCH (00:55)
--- NOTE | 2017-05-11 00:55 | NUR ---
PATIENT IV SITE ON L HAND LEAKING, IV SITE DISCONTINUE, REINSERT ANOTHER ONE ON L HAND ALSO, TOLERATE WELL. CONT TO MONITOR.
[2017-05-11 01:20] VITALS: BP 144/57
[2017-05-11 04:22] VITALS: BP 140/74
--- NOTE | 2017-05-11 05:23 | NUR ---
PATIENT SLEPT MOST OFTHE NIGHT, CONT ON PAIN MANAGEMENT ON L EAR LOBE,AND LEFT SHOULDER,CONT ABX FOR CELLULITIS OF R LOWER LEG. AMBULATE TO HALLWAYS WITH CAREGIVER. NO S/S OF DISTRESS.
[2017-05-11] MEDS: PANTOPRAZOLE SODIUM 40 MG TABLET.DR PO SCH (06:07)
[2017-05-11] MEDS: PIPERACILLIN/TAZOBACTAM/D5W 3.375 G in PREMIXED 1 EACH IV SCH ×2 (06:08→13:45)
[2017-05-11] MEDS: ropiniROLE 1 MG TABLET PO SCH ×2 (08:14→12:01)
[2017-05-11] MEDS: THIAMINE HCL 100 MG TABLET PO SCH (08:14)
[2017-05-11] MEDS: LACTOBACILLUS RHAMNOSUS GG 1 EACH CAPSULE PO SCH (08:14)
[2017-05-11] MEDS: MULTIVITAMINS,THERAPEUTIC TABLET PO SCH (08:14)
[2017-05-11] MEDS: FOLIC ACID 1 MG TABLET PO SCH (08:14)
[2017-05-11] MEDS: Z GUARD REMEDY PASTE 57 GM TUBE TOP SCH (08:15)
[2017-05-11] MEDS: CARBAMAZEPINE 200 MG TABLET PO SCH ×2 (08:15→16:01)
[2017-05-11] MEDS: PREGABALIN 25 MG CAPSULE PO SCH ×2 (08:15→16:01)
[2017-05-11] MEDS: PENTOXIFYLLINE 400 MG TABLET.SA PO SCH ×2 (08:15→16:01)
[2017-05-11 10:26] LABS: ALANINE AMINOTRANSFERASE 24 U/L (14-59); ALKALINE PHOSPHATASE 102 U/L (50-136); ASPARTATE AMINOTRANSFERASE 27 U/L (15-37); BILIRUBIN,TOTAL 0.2 mg/dL (0.2-1.0); CARBON DIOXIDE 29 mmol/L (21-32); CHLORIDE 103 mmol/L (98-107); CREATININE 0.8 mg/dL (0.6-1.3); GLUCOSE 114 mg/dL (74-106); MAGNESIUM 2.2 mg/dL (1.8-2.4); PHOSPHOROUS 3.5 mg/dL (2.5-4.9); POTASSIUM 3.7 mmol/L (3.5-5.1); TOTAL PROTEIN, SERUM 6.9 g/dL (6.4-8.2); UREA NITROGEN, BLOOD 17 mg/dL (7-18)
[2017-05-11 10:53] LABS: BASOPHILS % (AUTO) 0.5 % (0.0-2.0); EOSINOPHILS # (AUTO) 0.1 K/uL (0.0-0.7); EOSINOPHILS % (AUTO) 1.9 % (0.0-7.0); HEMATOCRIT 29.5 % (37-47); HEMOGLOBIN 9.4 G/DL (12.0-16.0); LYMPHOCYTES # (AUTO) 1.2 K/UL (0.8-4.8); LYMPHOCYTES % (AUTO) 18.8 % (20.5-51.5); MEAN CORPUSCULAR HEMOGLOBIN 28.2 UUG (27.0-31.0); MEAN CORPUSCULAR HGB CONC 32 g/dL (32.0-37.0); MEAN CORPUSCULAR VOLUME 88.7 FL (81.0-99.0); MONOCYTES # (AUTO) 0.5 K/UL (0.1-1.30); MONOCYTES % (AUTO) 7.9 % (0.0-11.0); NEUTROPHILS # (AUTO) 4.7 K/UL (1.8-8.9); NEUTROPHILS % (AUTO) 70.9 % (38.5-71.5); PLATELET COUNT (AUTO) 310 K/UL (150-450); RED BLOOD CELL COUNT(AUTO) 3.33 MIL/UL (4.2-5.4); WHITE BLOOD COUNT (AUTO) 6.5 K/UL (4.0-11.2)
--- NOTE | 2017-05-11 13:02 | NUR ---
Clinical Pharmacy Note: Vancomycin Dosing per Pharmacy Subjective: Vancomycin IV to continue on this 81 y/o female for indication of cellulitis Objective: BUN 17 Scr 0.8 WBC 6.5 Temperature 97 Assessment/Plan: Since renal function is stable, will continue same dose of vancomycin 1gm IV q21hrs for today. Next dose is due today at 2200. Will follow daily.
[2017-05-11 14:03] VITALS: BP 144/57
[2017-05-11] MEDS ORDERED: LACT1CAP57 PO (14:10)
[2017-05-11] MEDS ORDERED: CEPH500C2 PO (14:23)
--- NOTE | 2017-05-11 17:00 | NUR ---
discharge protocol followed, education on prescription medications provided, both the patient and childcare attendant verbalized understanding. iv taken out with no redness or irritation noted, left to make copies of signature pages and upon entry to room, pt was already dressed. I explained to the pt the importance of pictures upon leaving and that is it protocol, however pt refusing stating "already dressed and ready" caregiver agreeing with pt, ID band removed, pt taken down in wheelchair, and left in private car with caregiver, Kobe.
[2017-05-11] MEDS ORDERED: CEPHALEXIN MONOHYDRATE 500 MG CAPSULE PO SCH (22:00)
== END 2017-05-11 17:00 | disposition home health service (06) | DRG 383 ==
LOC: ER 17:42 → MED 20:24
PROVIDERS: ADMIT Internal Medicine; ATTEND Internal Medicine
DX: L03.115 Cellulitis of right lower limb (principal); I96 Gangrene, not elsewhere classified; E44.0 Moderate protein-calorie malnutrition; D68.59 Other primary thrombophilia; E67.8 Other specified hyperalimentation; M80.00XA Age-related osteoporosis with current pathological fracture, unspecified site, initial encounter for fracture; E87.1 Hypo-osmolality and hyponatremia; D50.9 Iron deficiency anemia, unspecified; F43.20 Adjustment disorder, unspecified; I25.10 Atherosclerotic heart disease of native coronary artery without angina pectoris; F10.10 Alcohol abuse, uncomplicated; K21.9 Gastro-esophageal reflux disease without esophagitis; R29.6 Repeated falls; Z91.81 History of falling; S81.811S Laceration without foreign body, right lower leg, sequela; W18.30XS Fall on same level, unspecified, sequela; Z87.81 Personal history of (healed) traumatic fracture; Z74.09 Other reduced mobility; Y90.9 Presence of alcohol in blood, level not specified; I89.0 Lymphedema, not elsewhere classified; I87.2 Venous insufficiency (chronic) (peripheral); Z68.29 Body mass index [BMI] 29.0-29.9, adult; S00.412A Abrasion of left ear, initial encounter; S00.83XA Contusion of other part of head, initial encounter; W18.30XA Fall on same level, unspecified, initial encounter; Y92.230 Patient room in hospital as the place of occurrence of the external cause; F41.9 Anxiety disorder, unspecified; E78.5 Hyperlipidemia, unspecified; Z87.01 Personal history of pneumonia (recurrent); Z91.14 Patient's other noncompliance with medication regimen; Z96.651 Presence of right artificial knee joint; D72.819 Decreased white blood cell count, unspecified; M17.0 Bilateral primary osteoarthritis of knee; M47.9 Spondylosis, unspecified
CPT/HCPCS: 36415; 70450; 71010; 80307; 82533; 83550; 83735; 84100; 84300; 84443; 85018; 85025; 85730; 87040; 87070; 87086; 93005; 97116; 97161; 97530; A4663; J2270; J2543; J3370; J7040; J7042; J7050

== ENCOUNTER 2019-10-09 21:32 | Emergency (ER) | payer MEDICARE, MEDICAID ==
[~2019-10-09] VITALS: Ht 165.1 cm; Wt 75.7 kg
[~2019-10-09 21:32] MED LIST changes: -AMIT100T2 PO; -CALC-1119 PO; +CEPH500C2 PO; +CLON1TAB12 PO; -CLON1TAB4 PO; -CLOP75TA15 PO; -FAMO1TAB36 PO; +LACT1CAP57 PO; +PENT400T17 PO; -PENT400T2 PO; -PHEN-704 PO; -SULF1TAB48 PO; -VITA1TAB34 PO
[2019-10-09 22:56] VITALS: BP 147/79
== END 2019-10-09 22:45 | disposition home or self-care (01) ==
LOC: ER 21:43
DX: I10 Essential (primary) hypertension (principal); F32.9 Major depressive disorder, single episode, unspecified; Z76.0 Encounter for issue of repeat prescription; Z79.899 Other long term (current) drug therapy
CPT/HCPCS: A4663